=== PATIENT | female | born 1970 | race Two or more races ===

== ENCOUNTER → 2016-11-26 | Emergency (ER) | payer OTHER ==
--- NOTE | 2016-11-26 17:50 | NUR ---
PT CALLED TO TRIAGE, PT NOT IN WAITING ROOM
== END | disposition home or self-care (01) ==
LOC: ER 17:24
DX: Z53.21 Procedure and treatment not carried out due to patient leaving prior to being seen by health care provider (principal)

== ENCOUNTER 2018-02-04 22:16 | Emergency (ER) | payer OTHER ==
[~2018-02-04] VITALS: Ht 160 cm; Wt 68.0 kg
--- NOTE | 2018-02-04 22:54 | NUR ---
BIBSELF C/O WEAKNESS SINCE YESTERDAY. HX THYROID CANCER. TOOK RADIATION PILLS YESTERDAY. PATIENT AMBULATED TO ER BED, SKIN WAERM AND DRY, RESP EVEN AND UNLABORED. WAITING ORDERS FROM PROVIDER
[2018-02-05 00:37] LABS: BASOPHILS % (AUTO) 0.4 % (0.0-2.0); EOSINOPHILS % (AUTO) 2.3 % (0.0-6.0); HEMATOCRIT 38 % (33-45); LYMPHOCYTES # (AUTO) 1.9 /CMM (0.8-4.8); LYMPHOCYTES % (AUTO) 41.6 % (20.0-44.0); MEAN CORPUSCULAR HGB CONC 34 g/dl (31.0-36.0); MEAN CORPUSCULAR VOLUME 96 fL (82-100); MONOCYTES # (AUTO) 0.4 /CMM (0.1-1.30); NEUTROPHILS # (AUTO) 2.2 /CMM (1.8-8.9); NEUTROPHILS % (AUTO) 47.7 % (43.0-81.0); PLATELET COUNT (AUTO) 465 /CMM (150-450); RDW COEFFICIENT OF VARIATION 15.2 (11.5-15.0); RED BLOOD CELL COUNT(AUTO) 3.96 MIL/uL (4.0-5.2); WHITE BLOOD COUNT (AUTO) 4.6 K/uL (4.3-11.0)
[2018-02-05 00:52] LABS: CALCIUM, SERUM 9.8 mg/dL (8.5-10.1); CREATININE 0.8 mg/dL (0.6-1.3)
[2018-02-05 02:24] VITALS: BP 159/118
--- NOTE | 2018-02-05 02:25 | NUR ---
Patient discharged to home in stable condition. Written and verbal after care instructions given. Patient verbalizes understanding of instruction. (pt. name) ambulatory with a steady gait
== END 2018-02-05 02:25 | disposition home or self-care (01) ==
LOC: ER 22:20
DX: R53.1 Weakness (principal); Z85.850 Personal history of malignant neoplasm of thyroid; Z88.6 Allergy status to analgesic agent; Z90.89 Acquired absence of other organs
CPT/HCPCS: 36415; 71045-TC; 80048-TC; 84443-TC; 85025-TC; A4606; Z7610

== ENCOUNTER 2023-04-08 20:01 | Emergency (ER) | payer MEDICAID, OTHER ==
[~2023-04-08] VITALS: Ht 160 cm; Wt 68.0 kg
[2023-04-08] MEDS ORDERED: FLUORESCEIN SODIUM OPHTH 1 EA STRIP ONE (22:37)
[2023-04-08] MEDS ORDERED: TETRAcaine 5 ML BOTTLE LEFTEYE ONE (23:00)
[2023-04-08] MEDS ORDERED: FLUORESCEIN SODIUM OPHTH 1 EA STRIP OP ONE (23:00)
[2023-04-08 23:50] VITALS: BP 157/91; TEMP 98.1; O2SAT 98
== END 2023-04-08 23:51 | disposition home or self-care (01) ==
LOC: ER 20:05
DX: H57.12 Ocular pain, left eye (principal); Z88.8 Allergy status to other drugs, medicaments and biological substances

== ENCOUNTER 2024-07-07 20:03 | Inpatient (IN) | payer MEDICAID, OTHER ==
[~2024-07-07] VITALS: Ht 160 cm; Wt 71.2 kg
[2024-07-07] MEDS ORDERED: MORPHINE SULFATE INJ 4 MG/ML DISP.SYRIN ONE ×2 (20:20→22:15)
[2024-07-07] MEDS ORDERED: ONDANSETRON HCL/PF 4 MG/2 ML VIAL ONE (20:20)
[2024-07-07] MEDS: ONDANSETRON HCL/PF 4 MG/2 ML VIAL IVP ONE (20:38)
[2024-07-07] MEDS: IV NS 0.9% 1,000 ML BAG IV ONE (20:38)
[2024-07-07] MEDS: MORPHINE SULFATE INJ 2 MG/ML DISP.SYRIN IV ONE ×2 (20:38→22:21)
[2024-07-07 20:41] LABS: BASOPHILS % (AUTO) 0.2 % (0.0-2.0); EOSINOPHILS % (AUTO) 0.4 % (0.0-6.0); HEMATOCRIT 41 % (33-45); HEMOGLOBIN 13.6 g/dL (11.5-14.8); LYMPHOCYTES # (AUTO) 0.7 K/uL (0.8-4.8); MEAN CORPUSCULAR HEMOGLOBIN 30 PG (26.0-33.0); MEAN CORPUSCULAR HGB CONC 34 g/dl (31.0-36.0); MEAN CORPUSCULAR VOLUME 90 fL (82-100); MONOCYTES # (AUTO) 0.3 K/uL (0.1-1.30); MONOCYTES % (AUTO) 4.2 % (2.0-12.0); NEUTROPHILS # (AUTO) 7.3 K/uL (1.8-8.9); NEUTROPHILS % (AUTO) 87.2 % (43.0-81.0); PLATELET COUNT (AUTO) 330 K/uL (150-450); RED CELL DISTRIBUTION WIDTH 13.9 % (11.5-15.0); WHITE BLOOD COUNT (AUTO) 8.3 K/uL (4.3-11.0)
[2024-07-07 21:09] LABS: ALBUMIN 3.9 g/dL (3.4-5.0); BILIRUBIN,DIRECT 0.1 mg/dL (0.0-0.2); BILIRUBIN,TOTAL 0.4 mg/dL (0.2-1.0); CALCIUM, SERUM 9.2 mg/dL (8.5-10.1); CREATININE 0.8 mg/dL (0.6-1.3); POTASSIUM 3.6 mmol/L (3.5-5.1); TOTAL PROTEIN, SERUM 8.6 g/dL (6.4-8.2)
[2024-07-07] MEDS ORDERED: DIATR MEGLU/DIATRIZOATE SODIUM 30 ML BOTTLE (GASTROGRAPHIN) ONE (21:39)
[2024-07-07 21:59] LABS: APPEARANCE,URINE CLEAR (CLEAR); BILIRUBIN,URINE NEGATIVE (NEGATIVE); BLOOD, URINE 1+ Ery/uL (NEGATIVE); COLOR,URINE YELLOW (YELLOW); KETONES,URINE NEGATIVE (NEGATIVE); LEUKOCYTE ESTERASE ,URINE 1+ (NEGATIVE); NITRITE, URINE NEGATIVE (NEGATIVE); PROTEIN,URINE NEGATIVE (NEGATIVE); UGLUCOSE NEGATIVE (NEGATIVE); UROBILINOGEN,URINE 0.2 EU/dL (0.2)
[2024-07-07 22:08] LABS: LACTIC ACID 2.3 mmol/L (0.4-2.0)
[2024-07-07] MEDS: IV LR 1000 ML 1,000 ML BAG IV ONE (22:13)
[2024-07-07] MEDS ORDERED: PIPERACI/TAZO 3.375GM/D5W 50ML PB IV ONE (22:14)
[2024-07-07] MEDS: PIPERACILLIN /TAZOBACTAM 3.375 G in IV D5W 50 ML IV ONE (22:21)
[2024-07-08] MEDS ORDERED: IOHEXOL-300 100 ML VIAL IV ONE (00:09)
[2024-07-08] MEDS ORDERED: IV NS 0.9% 250 ML IV ONE (00:09)
[2024-07-08] MEDS ORDERED: CT SWABBABLE VALVE TRANS SET 1 EA INFUS.SET MC ONE (00:09)
[2024-07-08 00:49] LABS: ADD URINE CULTURE YES; BACTERIA,URINE 2+ /HPF (None Seen)
[2024-07-08 01:50] VITALS: BP 121/71; TEMP 98.6; O2SAT 99
[2024-07-08] MEDS ORDERED: MORPHINE SULFATE INJ 2 MG/ML DISP.SYRIN IM PRN (02:00)
[2024-07-08] MEDS ORDERED: ONDANSETRON HCL/PF 4 MG/2 ML VIAL IV PRN (02:00)
[2024-07-08] MEDS ORDERED: MORPHINE SULFATE INJ 4 MG/ML DISP.SYRIN IM PRN (02:00)
[2024-07-08] MEDS ORDERED: ZOLPIDEM TARTRATE 5 MG TABLET PO PRN (02:00)
[2024-07-08] MEDS ORDERED: PIPERACILLIN /TAZOBACTAM 3.375 G in IV NS 0.9% 100 ML IV ONE (02:30)
[2024-07-08 02:41] VITALS: BP 121/71; TEMP 98.6; O2SAT 99
[2024-07-08] MEDS: IV D5/0.45 NACL 1,000 ML IV PRN (04:29)
[2024-07-08] MEDS ORDERED: PIPERACI/TAZO 3.375GM/D5W 50ML PB IV ONE (05:17)
[2024-07-08] MEDS: PIPERACILLIN /TAZOBACTAM 3.375 G in IV NS 0.9% 100 ML IV ONE (05:46)
[2024-07-08 06:36] LABS: BASOPHILS % (AUTO) 0.1 % (0.0-2.0); EOSINOPHILS % (AUTO) 0.2 % (0.0-6.0); HEMATOCRIT 36 % (33-45); HEMOGLOBIN 12.1 g/dL (11.5-14.8); LYMPHOCYTES # (AUTO) 0.5 K/uL (0.8-4.8); LYMPHOCYTES % (AUTO) 8.2 % (20.0-44.0); MEAN CORPUSCULAR HEMOGLOBIN 30 PG (26.0-33.0); MEAN CORPUSCULAR HGB CONC 33 g/dl (31.0-36.0); MEAN CORPUSCULAR VOLUME 90 fL (82-100); MONOCYTES # (AUTO) 0.5 K/uL (0.1-1.30); MONOCYTES % (AUTO) 9.1 % (2.0-12.0); NEUTROPHILS # (AUTO) 4.9 K/uL (1.8-8.9); NEUTROPHILS % (AUTO) 82.4 % (43.0-81.0); PLATELET COUNT (AUTO) 276 K/uL (150-450); RED BLOOD CELL COUNT(AUTO) 4.03 MIL/uL (4.0-5.2); RED CELL DISTRIBUTION WIDTH 14.1 % (11.5-15.0); WHITE BLOOD COUNT (AUTO) 5.9 K/uL (4.3-11.0)
[2024-07-08] MEDS: ACETAMINOPHEN 325 MG TABLET PO PRN (06:46)
[2024-07-08 06:54] LABS: CALCIUM, SERUM 8.6 mg/dL (8.5-10.1); CREATININE 0.7 mg/dL (0.6-1.3); POTASSIUM 3.5 mmol/L (3.5-5.1)
[2024-07-08] MEDS ORDERED: LEVO125T PO (07:39)
[2024-07-08 08:30] VITALS: BP 101/70; TEMP 99; O2SAT 98
[2024-07-08] MEDS ORDERED: PIPERACILLIN /TAZOBACTAM 3.375 G in IV D5W 100 ML IV SCH (10:00)
[2024-07-08] MEDS: CEFTRIAXONE 1 G in IV D5W 50 ML IV SCH (10:57)
[2024-07-08] MEDS ORDERED: PIPERACILLIN /TAZOBACTAM 3.375 G in IV D5W 50 ML IV SCH (12:00)
[2024-07-08 16:00] VITALS: BP 121/75; TEMP 98.2; O2SAT 97
[2024-07-08 20:00] VITALS: BP 113/90; TEMP 98.4; O2SAT 96
[2024-07-09 07:12] LABS: BASOPHILS % (AUTO) 0.5 % (0.0-2.0); EOSINOPHILS % (AUTO) 1.4 % (0.0-6.0); HEMATOCRIT 35 % (33-45); HEMOGLOBIN 11.8 g/dL (11.5-14.8); LYMPHOCYTES # (AUTO) 1.8 K/uL (0.8-4.8); LYMPHOCYTES % (AUTO) 63.9 % (20.0-44.0); MEAN CORPUSCULAR HEMOGLOBIN 30 PG (26.0-33.0); MEAN CORPUSCULAR HGB CONC 33 g/dl (31.0-36.0); MEAN CORPUSCULAR VOLUME 91 fL (82-100); MONOCYTES # (AUTO) 0.4 K/uL (0.1-1.30); MONOCYTES % (AUTO) 15.3 % (2.0-12.0); NEUTROPHILS # (AUTO) 0.5 K/uL (1.8-8.9); NEUTROPHILS % (AUTO) 18.9 % (43.0-81.0); PLATELET COUNT (AUTO) 264 K/uL (150-450); RED BLOOD CELL COUNT(AUTO) 3.89 MIL/uL (4.0-5.2); RED CELL DISTRIBUTION WIDTH 14.5 % (11.5-15.0); WHITE BLOOD COUNT (AUTO) 2.8 K/uL (4.3-11.0)
[2024-07-09 07:31] LABS: CREATININE 0.7 mg/dL (0.6-1.3); POTASSIUM 3.4 mmol/L (3.5-5.1)
[2024-07-09 08:00] VITALS: BP 127/85; TEMP 98.3; O2SAT 97
[2024-07-09] MEDS: HYDROXYCHLOROQUINE 200 MG TABLET PO SCH (08:32)
[2024-07-09 08:51] LABS: EOSINOPHILS % (MANUAL) 1 % (0-4); LYMPHOCYTES % (MANUAL) 65 % (16-48); MONOCYTES % (MANUAL) 14 % (0-11.0); NEUTROPHILS % (MANUAL) 20 (42-76)
[2024-07-09 08:52] LABS: ANISOCYTOSIS 1+; PLATELET ESTIMATE ADEQUATE
[2024-07-09] MEDS: POTASSIUM CHLORIDE 20 MEQ TAB.PRT.SR PO ONE (09:19)
[2024-07-09] MEDS ORDERED: LEVO250T59 PO (09:19)
== END 2024-07-09 14:44 | disposition home or self-care (01) | DRG 463 ==
LOC: ER 20:13 → MED 07-08 01:05
PROVIDERS: ADMIT Nurse Practitioner Family; ATTEND Internal Medicine
DX: N12 Tubulo-interstitial nephritis, not specified as acute or chronic (principal); C73 Malignant neoplasm of thyroid gland; M32.9 Systemic lupus erythematosus, unspecified; E86.0 Dehydration; E89.0 Postprocedural hypothyroidism; M06.9 Rheumatoid arthritis, unspecified; M19.90 Unspecified osteoarthritis, unspecified site; Z20.822 Contact with and (suspected) exposure to COVID-19; Z85.850 Personal history of malignant neoplasm of thyroid; Z90.49 Acquired absence of other specified parts of digestive tract; Z98.890 Other specified postprocedural states; Z88.6 Allergy status to analgesic agent; M48.00 Spinal stenosis, site unspecified; Z79.890 Hormone replacement therapy
CPT/HCPCS: 36415; 71045-TC; 72131-TC; 80048-TC; 80076-TC; 81001; 83605-TC; 83690-TC; 85025-TC; 87040-TC; 87086-TC; A4223; G0378; J0696; J2270; J2405; J2543; J3490; J7030; J7040; J7050; J7060; J7120; Q9963; Q9967